=== PATIENT | male | born 1945 | race Caucasian/White ===

== ENCOUNTER → 2016-07-28 | Outpatient (CLI) | payer MEDICARE, OTHER | LOC: GMAM 17:00 | PROVIDERS: ATTEND Family Medicine | DX: E03.9 Hypothyroidism, unspecified (principal); E29.1 Testicular hypofunction ==

== ENCOUNTER → 2016-09-02 | Outpatient (CLI) | payer MEDICARE, OTHER | END | disposition home or self-care (01) | LOC: LAB 11:56 | PROVIDERS: ATTEND Family Medicine | DX: D45 Polycythemia vera (principal) ==

== ENCOUNTER → 2017-01-05 | Outpatient (CLI) | payer MEDICARE, OTHER | END | disposition home or self-care (01) | LOC: GMAM 10:56 | PROVIDERS: ATTEND Family Medicine | DX: E03.9 Hypothyroidism, unspecified (principal); E55.9 Vitamin D deficiency, unspecified; R31.21 Asymptomatic microscopic hematuria ==

== ENCOUNTER → 2017-04-30 | Outpatient (CLI) | payer MEDICARE, OTHER | END | disposition home or self-care (01) | LOC: GMA 12:51 | PROVIDERS: ATTEND Physician Assistant | DX: L03.317 Cellulitis of buttock (principal) ==

== ENCOUNTER → 2017-05-11 | Outpatient (CLI) | payer MEDICARE, OTHER | END | disposition home or self-care (01) | LOC: GMAM 10:18 | PROVIDERS: ATTEND Family Medicine | DX: E03.9 Hypothyroidism, unspecified (principal); E29.1 Testicular hypofunction; E55.9 Vitamin D deficiency, unspecified ==

== ENCOUNTER → 2018-07-13 | Outpatient (CLI) | payer MEDICARE, OTHER | LOC: GMAM 11:26 | PROVIDERS: ATTEND Family Medicine | DX: E03.9 Hypothyroidism, unspecified (principal); E29.1 Testicular hypofunction; E55.9 Vitamin D deficiency, unspecified ==

== ENCOUNTER 2018-09-08 11:46 | Emergency (ER) | payer MEDICARE, OTHER ==
[2018-09-08] MEDS ORDERED: FOLIC ACID 1 MG TAB ONE (12:05)
[2018-09-08] MEDS ORDERED: THIAMINE HCL 100 MG TAB PO ONE (12:05)
[2018-09-08 12:09] VITALS: TEMP 97.4
[2018-09-08 13:06] VITALS: O2SAT 96
--- NOTE | 2018-09-08 13:57 | ED.PDOC ---
History of Present Illness - General Chief Complaint: General Stated Complaint: tingling,numbness in feet and left hand Time Seen by Provider: 09/08/18 11:58 Source: patient Exam Limitations: no limitations - History of Present Illness Initial Comments: the patient is 72-year-old male presenting to emergency room secondary to feeling of worsening of decreased sensation and as well as neuropathic burning pain to the stocking glove distribution over the past 3-5 days. No focal neurological deficits. No trauma. The patient admits being noncompliant with his CPAP at night and he does have significant sleep apnea. He has had some significant peripheral neuropathy in the past and does see a neurologist already. He does have a history of significant alcohol intake. Timing/Duration: 1 week Severity: mild Improving Factors: nothing Worsening Factors: nothing Associated Symptoms: denies symptoms Allergies/Adverse Reactions: Allergies NO KNOWN ALLERGY Allergy (Verified 04/25/15 08:21) Home Medications: Ambulatory Orders Armouk Thyroid 97.5 mg PO DAILY 04/25/15 Aspirin [Baby Aspirin] 81 mg PO QD 04/25/15 Cholecalciferol [Vitamin D-3] 2,000 unit PO DAILY 04/25/15 Losartan Potassium 100 mg PO DAILY 04/25/15 Wagener-3 Fatty Acids [Fish Oil] 1 cap PO DAILY 04/25/15 Tamsulosin [Flomax] 0.4 mg PO BEDTIME 04/25/15 Triamterene & Hydrochlorothiaz [Triamterene/Hydrochloroth 37.5-25 mg] 1 cap PO DAILY 04/25/15 Amlodipine Besylate 5 mg PO DAILY 09/08/18 Ascorbic Acid [Vitamin C] 1,000 mg PO DAILY 09/08/18 Bupropion HCl [Bupropion HCl Xl] 150 mg PO DAILY 09/08/18 Calcium 600 mg PO DAILY 09/08/18 Clonazepam 2 mg PO BEDTIME 09/08/18 Esomeprazole Magnesium [Nexium 24Hr] 20 mg PO DAILY 09/08/18 Gabapentin [Neurontin] 100 mg PO QPM #30 cap 09/08/18 Qvnunmltrxq-Rcfdmdxazlq-Dvhmug [Glucosamine & Chrondroiti] 1 pow PO DAILY 09/08/18 Magnesium [Magnesium 400 mg] 1 tab PO DAILY 09/08/18 Metformin HCl 500 mg PO DAILY 09/08/18 Review of Systems - Review of Systems Constitutional: States: no symptoms reported EENTM: States: no symptoms reported Respiratory: States: no symptoms reported Cardiology: States: no symptoms reported Gastrointestinal/Abdominal: States: no symptoms reported Genitourinary: States: no symptoms reported Musculoskeletal: States: no symptoms reported Skin: States: no symptoms reported Neurological: States: see HPI, anxiety Endocrine: States: no symptoms reported All other Systems: No Change from Baseline Past Medical History (General) - Patient Medical History Hx Stroke: No Hx Congestive Heart Failure: No Hx Hypertension: Yes Hx Diabetes: No Hx Gastroesophageal Reflux: Yes - Vaccination History Hx Influenza Vaccination: Yes Hx Pneumococcal Vaccination: Yes - Social History Hx Tobacco Use: Yes Family Medical History - Family History Father Family History: Unknown Physical Exam - Physical Exam General Appearance: Alert, Anxious, No apparent distress, Other - the patient ambulates without difficulty. No evidence of altered mental status without slurring of speech. He is alert oriented and completely appropriate. Eye Exam: bilateral normal Ears, Nose, Throat: hearing grossly normal, normal ENT inspection, normal pharynx Neck: full range of motion, supple Respiratory: lungs clear, normal breath sounds, no respiratory distress, no accessory muscle use Cardiovascular/Chest: normal peripheral pulses, regular rate, rhythm, no edema Peripheral Pulses: radial,right: 2+, radial,left: 2+, dorsalis pedis,right: 2+, dorsalis pedis,left: 2+ Gastrointestinal/Abdominal: non tender, soft Rectal Exam: deferred Back Exam: no CVA tenderness, no vertebral tenderness Extremity: normal range of motion, non-tender, no pedal edema, no calf tenderness, normal capillary refill 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 Skin Exam: normal color Comments: Vital Signs - 24 hr 09/08/18 09/08/18 12:04 13:05 Temperature 97.4 F L Pulse Rate [ 101 H 85 Left Brachial] Respiratory 20 18 Rate Blood Pressure 178/84 148/84 [Left Arm] O2 Sat by Pulse 98 96 Oximetry Progress - Progress Progress: 09/08/18 13:58 the patient is a 72-year-old male presenting to the emergency room secondary to worsening of his stocking glove peripheral neuropathy symptoms. I see no new focal neurological deficits to indicate anything along the lines of a stroke. I would recommend that the patient restart his CPAP at night if possible as overnight low oxygen levels may be worsening the process. I will write him for Neurontin to take 100 mg at night for now for the next few weeks. He needs to follow back up with his primary care doctor in a couple of weeks to see if this is overall helping his symptoms. He does understand that this will not reverse the sensory loss but only hopefully reduce the painful aspects of the neuropathy. Additionally I want the patient to take a vitamin B complex, 2 tablets daily that he can get at [facility]. He does need to continue his vitamin D supplement. Ambulate carefully as sensory loss does increase fall risk. Additionally, alcohol intake can worsen neuropathic changes. diabetes can also contribute to worsening peripheral neuropathy so this needs to be followed as well. ER warnings were given for any significant worsening. 09/08/18 14:03 - Results/Orders Results/Orders: Laboratory Tests 09/08/18 09/08/18 09/08/18 12:03 12:03 12:03 WBC 6.1 RBC 5.03 Hgb 17.2 Hct 50.4 MCV 100.2 H MCH 34.3 H MCHC 34.2 RDW 13.8 Plt Count 244 MPV 7.8 Absolute Neuts (auto) 3.70 Absolute Lymphs (auto) 1.40 Absolute Monos (auto) 0.80 Absolute Eos (auto) 0.10 Absolute Basos (auto) 0.10 Neutrophils % 60.2 Lymphocytes % 23.3 Monocytes % 13.6 H Eosinophils % 1.8 Basophils % 1.1 Sodium 136 Potassium 4.0 Chloride 99 L Carbon Dioxide 23 Anion Gap 18.0 BUN 8 Creatinine 0.43 L BUN/Creatinine Ratio 18.6 Random Glucose 113 H Serum Osmolality 271.1 L Lactic Acid 2.2 Calcium 9.9 Magnesium 1.9 Total Bilirubin 1.5 H AST 62 H ALT 94 H Alkaline Phosphatase 75 Creatine Kinase 154 CK-MB (CK-2) 5.5 H* CK-MB (CK-2) % 3.57 H Troponin I < 0.02 B-Natriuretic Peptide 9.7 Serum Total Protein 8.0 Albumin 4.7 Globulin 3.3 Albumin/Globulin Ratio 1.4 TSH 0.88 Urine Color Urine Appearance Urine pH Ur Specific [place] Urine Protein Urine Glucose (UA) Urine Ketones Urine Blood Urine Nitrite Urine Bilirubin Urine Urobilinogen Ur Leukocyte Esterase Urine RBC Urine WBC Ur Epithelial Cells Urine Bacteria 09/08/18 12:15 WBC RBC Hgb Hct MCV MCH MCHC RDW Plt Count MPV Absolute Neuts (auto) Absolute Lymphs (auto) Absolute Monos (auto) Absolute Eos (auto) Absolute Basos (auto) Neutrophils % Lymphocytes % Monocytes % Eosinophils % Basophils % Sodium Potassium Chloride Carbon Dioxide Anion Gap BUN Creatinine BUN/Creatinine Ratio Random Glucose Serum Osmolality Lactic Acid Calcium Magnesium Total Bilirubin AST ALT Alkaline Phosphatase Creatine Kinase CK-MB (CK-2) CK-MB (CK-2) % Troponin I B-Natriuretic Peptide Serum Total Protein Albumin Globulin Albumin/Globulin Ratio TSH Urine Color Yellow Urine Appearance Clear Urine pH 7.0 Ur Specific [place] 1.015 Urine Protein Negative Urine Glucose (UA) Negative Urine Ketones Negative Urine Blood Negative Urine Nitrite Negative Urine Bilirubin Negative Urine Urobilinogen 0.2 Ur Leukocyte Esterase Negative Urine RBC 0 Urine WBC 0 Ur Epithelial Cells 0 Urine Bacteria 0 Departure - Departure Clinical Impression: Peripheral neuropathy Qualifiers: Peripheral neuropathy type: polyneuropathy, unspecified Qualified Code(s): G62.9 - Polyneuropathy, unspecified Disposition: Discharge to Home or Self Care Condition: Fair Departure Forms: ED Discharge - Pt. Copy, Patient Portal Self Enrollment Instructions: Peripheral Neuropathy (DC) Diet: regular diet Activity: increase activity as tolerated Referrals: Mark Guido MD [Primary Care Provider] - 1-2 Weeks Prescriptions: Gabapentin [Neurontin] 100 mg PO QPM #30 cap Home Medications: Ambulatory Orders Armouk Thyroid 97.5 mg PO DAILY 04/25/15 Aspirin [Baby Aspirin] 81 mg PO QD 04/25/15 Cholecalciferol [Vitamin D-3] 2,000 unit PO DAILY 04/25/15 Losartan Potassium 100 mg PO DAILY 04/25/15 Wagener-3 Fatty Acids [Fish Oil] 1 cap PO DAILY 04/25/15 Tamsulosin [Flomax] 0.4 mg PO BEDTIME 04/25/15 Triamterene & Hydrochlorothiaz [Triamterene/Hydrochloroth 37.5-25 mg] 1 cap PO DAILY 04/25/15 Amlodipine Besylate 5 mg PO DAILY 09/08/18 Ascorbic Acid [Vitamin C] 1,000 mg PO DAILY 09/08/18 Bupropion HCl [Bupropion HCl Xl] 150 mg PO DAILY 09/08/18 Calcium 600 mg PO DAILY 09/08/18 Clonazepam 2 mg PO BEDTIME 09/08/18 Esomeprazole Magnesium [Nexium 24Hr] 20 mg PO DAILY 09/08/18 Gabapentin [Neurontin] 100 mg PO QPM #30 cap 09/08/18 Qbznypufmtd-Bmngnfxgqxs-Uldimm [Glucosamine & Chrondroiti] 1 pow PO DAILY 09/08/18 Magnesium [Magnesium 400 mg] 1 tab PO DAILY 09/08/18 Metformin HCl 500 mg PO DAILY 09/08/18 Additional Instructions: the patient is a 72-year-old male presenting to the emergency room secondary to worsening of his stocking glove peripheral neuropathy symptoms. I see no new focal neurological deficits to indicate anything along the lines of a stroke. I would recommend that the patient restart his CPAP at night if possible as overnight low oxygen levels may be worsening the process. I will write him for Neurontin to take 100 mg at night for now for the next few weeks. He needs to follow back up with his primary care doctor in a couple of weeks to see if this is overall helping his symptoms. He does understand that this will not reverse the sensory loss but only hopefully reduce the painful aspects of the neuropathy. Additionally I want the patient to take a vitamin B complex, 2 tablets daily that he can get at [facility]. He does need to continue his vitamin D supplement. Ambulate carefully as sensory loss does increase fall risk. Additionally, alcohol intake can worsen neuropathic changes. diabetes can also contribute to worsening peripheral neuropathy so this needs to be followed as well. ER warnings were given for any significant worsening.
[2018-09-08 14:10] VITALS: BP 157/82
[2018-09-09] MEDS ORDERED: THIAMINE HCL 100 MG TAB PO ONE (12:00)
[2018-09-09] MEDS ORDERED: FOLIC ACID 1 MG TAB PO ONE (12:00)
== END 2018-09-08 14:10 | disposition home or self-care (01) ==
LOC: ER 11:46
DX: G62.9 Polyneuropathy, unspecified (principal); G47.30 Sleep apnea, unspecified; I10 Essential (primary) hypertension; K21.9 Gastro-esophageal reflux disease without esophagitis; Z91.19 Patient's noncompliance with other medical treatment and regimen; Z79.899 Other long term (current) drug therapy; Z79.82 Long term (current) use of aspirin; Z87.891 Personal history of nicotine dependence

== ENCOUNTER → 2018-09-15 | Outpatient (CLI) | payer MEDICARE, OTHER ==
--- NOTE | 2018-09-15 20:33 | MRI ---
EXAM DESCRIPTION: Brain w/wo Contrast: Magnetic Resonance Imaging. CLINICAL HISTORY: 72 years Male HEADACHE COMPARISON: None. TECHNIQUE: Multiplanar, high-field MRI, multiple conventional sequences, without and with gadolinium IV contrast. No adverse reactions. Multiple axial diffusion sequences. FINDINGS: Bilateral multiple foci of hyperintense FLAIR and T2-weighted signal in the busby radiata periventricular white matter and bilateral centrum semiovale. Scattered foci bilaterally in the subcortical white matter.. No hemorrhage, edema, abnormal contrast enhancement, or diffusion restriction. Bilateral lesions also seen in the basal ganglia, more left than right. 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 No abnormal enhancement. Normal signal in the brainstem and cerebellar hemispheres, except for old focal lesion, possibly old infarct, in the right cerebellar hemisphere.. No hemorrhage, no cerebral edema, no mass-effect. Normal contrast enhancement. Concordance of the diffusion and non-diffusion sequences with no evidence of acute or subacute infarction. Cortical sulci, ventricles, and other CSF spaces, and the subdural spaces are normally configured.. No effacement or displacement. No midline shift. No extra-axial hemorrhage. Normal contrast enhancement. Normal flow signal void in the major vessels of the [place], and the venous sinuses. IACs are symmetric bilaterally. Fluid like signal in the bilateral mastoid air cells. No mass effect in the bilateral Cerebellopontine angles. Normal contrast enhancement. Pituitary gland occupies most of the sella. Normal contrast enhancement. Base of the cerebellar tonsils is at the level of the foramen magnum. Mucoperiosteal thickening with minimal contrast enhancement in the bilateral ethmoid air cells. Inferior anterior mucous retention cyst or polyp in the right antrum with no significant enhancement. No other abnormalities in the paranasal sinuses.. The bony calvarium is intact. IMPRESSION: 1. Abnormal signal in the bilateral basal ganglia, busby radiata and centrum semiovale white matter, in the subcortical white matter most likely related to cerebral microvascular disease and aging. No intra-axial extra-axial hemorrhage or abnormal fluid collection. No abnormal contrast enhancement or mass effect. 2. No significant effusion restriction indicating acute or subacute infarction or significant ischemia. Old infarct in the right basal ganglia. Possible old infarct in the right cerebellar hemisphere. 3. Minimal chronic paranasal sinusitis. Chronic mastoiditis bilaterally. Electronically signed by: Santi Vazquez MD 09/15/2018 8:29 PM CDT
== END ==
LOC: MRI 10:00
PROVIDERS: ATTEND Family Medicine
DX: G44.89 Other headache syndrome (principal); J32.9 Chronic sinusitis, unspecified; H70.93 Unspecified mastoiditis, bilateral

== ENCOUNTER → 2018-09-26 | Outpatient (CLI) | payer MEDICARE, OTHER ==
--- NOTE | 2018-09-26 11:17 | US ---
EXAM DESCRIPTION: Sonogram of the liver CLINICAL HISTORY: 72 years Male, ELEVATED LFT COMPARISON: None. FINDINGS: Arteriosclerotic changes in the aorta with infrarenal abdominal aortic aneurysm 4.2 x 4.3 cm. Vascular surgical consultation is recommended with annual imaging follow-up. Normal appearance of the inferior vena cava. Liver is hyperechoic consistent with mild diffuse hepatic steatosis. Liver length of 16.9 cm is within normal limits. Normal appearance of hepatic veins and inferior vena cava. Normal appearance of the portal vein. Right kidney measures 11.8 cm length with normal cortical thickness and echogenicity and no hydronephrosis. A stone is seen in the gallbladder 2.2 cm in diameter. Gallbladder wall thickness is 1.5 mm which is within normal limits. Sonographic Elizalde sign is reported as negative. Common duct is prominent measuring 4.9 mm. IMPRESSION: Gallstone in the gallbladder without other changes to suggest acute cholecystitis. Hyperechoic liver consistent with diffuse hepatic steatosis. Infrarenal abdominal aortic aneurysm 4.3 cm. See above recommendations for follow-up. Electronically signed by: Arslan Montgomery MD 09/26/2018 11:15 AM CDT
--- NOTE | 2018-09-26 16:11 | US ---
EXAM DESCRIPTION: Carotid Duplex CLINICAL HISTORY: vascular dz I73.0 COMPARISON: None Available. TECHNIQUE: Carotid Doppler ultrasound FINDINGS: Right Submitted images show prominent calcified plaque in the upper left CCA and at the left carotid bifurcation. The longitudinal image measures ICA diameter stenosis of 49% due to calcified plaque. The following flow velocities were obtained: Common carotid artery peak systolic flow velocity measures 101 centimeters per second. Internal carotid artery peak systolic flow velocity measures 47-63 centimeters per second. External carotid artery peak systolic flow velocity measures 99 centimeters per second. Flow in the right vertebral artery is antegrade. The right internal carotid to common carotid peak systolic flow velocity ratio equals 0.6 which is normal. Left Submitted images show extensive calcified plaque of the left carotid bifurcation. The following flow velocities were obtained: Common carotid artery peak systolic flow velocity measures 78 centimeters per second. Internal carotid artery peak systolic flow velocity measures 41-58 centimeters per second. External carotid artery peak systolic flow velocity measures 76 centimeters per second. Flow in the left vertebral artery is antegrade. The left internal carotid to common carotid peak systolic flow velocity ratio of 0.7 is normal. IMPRESSION: Arteriosclerotic plaque at the carotid bifurcations bilaterally. No hemodynamically significant stenosis. Electronically signed by: Arslan Montgomery MD 09/26/2018 4:09 PM CDT
== END ==
LOC: US 10:30
PROVIDERS: ATTEND Family Medicine
DX: R94.5 Abnormal results of liver function studies (principal); K76.9 Liver disease, unspecified; I73.00 Raynaud's syndrome without gangrene; I71.4 Abdominal aortic aneurysm, without rupture; I65.23 Occlusion and stenosis of bilateral carotid arteries; K80.20 Calculus of gallbladder without cholecystitis without obstruction; M47.816 Spondylosis without myelopathy or radiculopathy, lumbar region

== ENCOUNTER → 2018-09-30 | Outpatient (CLI) | payer MEDICARE, OTHER | LOC: GMAM 14:56 | PROVIDERS: ATTEND Family Medicine | DX: R94.5 Abnormal results of liver function studies (principal) ==

== ENCOUNTER → 2018-10-05 | Outpatient (CLI) | payer MEDICARE, OTHER | LOC: GMAM 11:28 | PROVIDERS: ATTEND Family Medicine | DX: E83.51 Hypocalcemia (principal) ==

== ENCOUNTER → 2018-11-29 | Outpatient (CLI) | payer MEDICARE, OTHER ==
--- NOTE | 2018-11-29 15:09 | MRI ---
EXAM DESCRIPTION: Lumbar Spine w/o Contrast : Magnetic Resonance Imaging. CLINICAL HISTORY: LUMBAR RADICULOPATHY COMPARISON: MRI scan of the lumbar spine without contrast 03/11/2013. TECHNIQUE: Multiplanar, multiple standard sequences, non contrast MRI, lumbar spine. FINDINGS: L5-S1: Disc space is identified on T2 axial series 501, image 8. S1 sacral segment is transitional and partially lumbarized. Rudimentary S1-S2 disc. L5-S1 disc desiccation and moderate disc space loss more on the right with moderate endplate reactive changes. Disc spur complex encroaching on the right foramen with stenosis and compromise of the exiting right L5 nerve. This has increased since the prior study. Posterior disc bulge 6 mm with minimal inferior migration effacing the bilateral subarticular recesses more left than right and possible compromise descending bilateral S1 nerves. Disc bulge versus protrusion into the left foramen with stenosis and compromise left L5 nerve. No significant change since the prior study. Mild bilateral facet arthrosis and thickening of the ligaments. AP canal diameter 10 mm. L4-L5: Disc desiccation diffusely with endplate reactive changes moderate to advanced in the midline into the right of midline. Schmorl's nodes. Disc osteophyte complex impressing on the right foramen with minimal stenosis. Posterior disc osteophyte broad-based encroaching on the canal. Partial left L5 laminectomy has been performed since the prior study. Mild left facet hypertrophic arthrosis and ligament thickening. AP canal diameter 12 mm. Mild to moderate left foraminal narrowing. L3-L4: Disc desiccation and moderate disc space loss on the right. Disc space almost collapsed on the left with advanced spondylosis reactive changes and endplate Schmorl's nodes. Grade 1 anterolisthesis 4 mm. Progressed since the prior study. Disc spur complex encroaching on the left foramen with stenosis and compromise left L3 nerve. Progressed since the prior study. Minimal narrowing of the left subarticular recess. Bilateral hypertrophic facet arthrosis and ligament thickening. AP canal diameter 9 mm. This is progressed since the prior study. L2-L3: Disc desiccation and minimal disc space loss. Posterior broad-based bulge with minimal disc osteophyte bulge into the left foramen and moderate narrowing. This is progressed since the prior study. Hypertrophic facet arthrosis and posterior ligament thickening with AP canal diameter 9 mm. Narrowing of the bilateral subarticular recesses. Mild narrowing of the left foramen. L1-L2: Disc desiccation and disc space maintained. Schmorl's node inferior L1. No significant disc bulge. Bilateral mild upper trophic facet arthrosis and ligament thickening. Mild canal narrowing. Conus terminates at this level. No change since the prior study. T12-L1: Disc desiccation and mild to moderate disc space loss. Endplate reactive changes and Schmorl's node inferior T12. Minimal posterior broad-based bulge. This is progressed since the prior study. Bilateral hypertrophic facet arthrosis and ligament thickening. Mild canal narrowing left foraminal narrowing. Stable since the prior study. No significant scoliosis. Paravertebral soft tissues showing muscle atrophy.. Normal marrow signal in the remaining vertebral bodies and the posterior elements. Vertebral bodies are not compressed at any level. IMPRESSION: 1. Multilevel discs degeneration, spondylosis, hypertrophic facet arthrosis and flavum ligament hypertrophy. Progressed since the prior study. L1 sacral segment is transitional and partially lumbarized with a S1-S2 rudimentary disc. 2. L5-S1 spondylosis with right side disc spur complex encroaching on the right L5 nerve. Posterior disc bulge migrating below the disc space and encroaching on the bilateral subarticular recesses with compromise of the bilateral S1 nerves. Progressed since the prior study. Disc bulge into the left foramen encroaching on the nerve stable since the prior study. 3. Right L4-L5 spondylosis and disc spur complex encroaching on the foramen with minimal stenosis and nerve encroachment no change since the prior study. L5 left partial laminectomy new since the prior study. 4. Grade 1 anterolisthesis at L3-4 and advanced spondylosis on the left has progressed since the prior study. Also new left side disc spur complex encroaching on the foramen and the left L3 nerve. Mild central canal stenosis. 5. Posterior broad-based bulge of the L2-L3 disc and disc osteophyte bulge into the left foramen has progressed since the prior study. Electronically signed by: Santi Vazquez MD 11/29/2018 3:07 PM CDT
== END ==
LOC: MRI 10:00
PROVIDERS: ATTEND Family Medicine
DX: M51.16 Intervertebral disc disorders with radiculopathy, lumbar region (principal); M47.26 Other spondylosis with radiculopathy, lumbar region; M43.16 Spondylolisthesis, lumbar region; M48.062 Spinal stenosis, lumbar region with neurogenic claudication

== ENCOUNTER → 2019-02-03 | Outpatient (CLI) | payer MEDICARE, OTHER ==
--- NOTE | 2019-02-03 16:56 | CT ---
EXAM DESCRIPTION: Lumbar Spine CLINICAL HISTORY: 73 years, Male, Spondylosis without myelopathy or radiculopathy COMPARISON: MRI of the lumbar spine November 29, 2018 TECHNIQUE: Lumbar CT with thin-section axial imaging with reconstructed MPR images reviewed as well. FINDINGS: Sagittal reformatted images show congenitally small lumbar spinal canal. Mild degenerative anterolisthesis of L3 on L4 measures 5 mm. No spondylolysis. No compression fracture or other fracture. There is slight wedging anteriorly at T12 which is chronic in appearance. Multiple Schmorl's nodes are seen. Severe disc degeneration is seen at T11-12, T12-L1, L3-4, L4-5 and L5-S1 with vacuum disc phenomenon. Posterior annular bulges are prominent at these levels. Coronal reformatted images show infrarenal abdominal aortic aneurysm measuring 4.2 cm in diameter. Imaging follow up every 12 months is recommended as well as vascular surgical consultation (Reference: J Am Arnold Radiol 2013;10:789-794). Mild degenerative leftward curvature of the mid to lower lumbar spine is seen with multilevel prominent lateral marginal osteophytes. Upper sacrum appears intact. Degenerative narrowing at the SI joints. Axial images were obtained to evaluate disc levels. T11-T12: Moderate diffuse posterior bulge without spinal stenosis. There is severe left and moderately severe right neural foraminal narrowing related to bulging disc material and marginal osteophyte formation. No significant facet hypertrophy. T12-L1: Diffuse posterior annular bulge of moderate severity without high-grade spinal stenosis. Neural foraminal narrowing is moderate on the right and mild on the left. Marked right-sided facet hypertrophic spurring. There is moderate narrowing of the left subarticular recess. L1-L2: Moderate diffuse posterior disc bulge is seen narrowing the spinal canal to 1.2 cm in AP dimension. There is mild left and moderate right neural foraminal narrowing related to bulging disc material. No significant facet spurring. L2-3: Moderately severe diffuse posterior bulge is seen. Moderate facet hypertrophy with marked ligamentum flavum thickening. Spinal canal is narrowed to 1 x 0.6 cm consistent with moderately severe spinal stenosis. There is moderate bilateral neural foraminal narrowing left more than right with marked left-sided facet spurring. Subarticular recesses are severely narrowed with moderate upper lateral recess compromise. L3-4: Uncovering of the posterior annulus by grade 1 anterolisthesis. Moderately severe diffuse annular bulge is seen narrowing the AP diameter spinal canal to 1.2 cm. Marked facet spurring right worse than left with severe subarticular recess and upper lateral recess compromise. Sagittal images show moderately severe bilateral neural foraminal narrowing. L4-L5: Moderately severe diffuse posterior annular bulge narrows the AP diameter of spinal canal to 1 cm. Posterior left laminectomy defect. Mild facet hypertrophic spurring on the right. There is severe subarticular recess and lateral recess compromise by bulging disc material. Moderate bilateral neural foraminal narrowing. L5-S1: Moderately severe diffuse posterior annular bulge with high grade spinal stenosis narrowing the AP diameter spinal canal to 6 mm. Moderate facet hypertrophy contributes to subarticular recess compromise. Sagittal images show Severe left and moderately severe right neural foraminal narrowing. Compared to previous MRI, findings are very similar. No major change is evident. IMPRESSION: Multilevel multifactorial lumbar spinal stenosis most severe at L2-3, L4-5 and L5-S1. Infrarenal abdominal aortic aneurysm 4.2 cm in diameter. Follow-up as per recommendations above. This exam was performed according to our departmental dose-optimization program, which includes automated exposure control, adjustment of the mA and/or kV according to patient size and/or use of iterative reconstruction technique. Electronically signed by: Arslan Montgomery MD 02/03/2019 4:54 PM CDT
== END ==
LOC: CT 15:30
PROVIDERS: ATTEND Neurological Surgery
DX: M47.816 Spondylosis without myelopathy or radiculopathy, lumbar region (principal); M48.04 Spinal stenosis, thoracic region; M48.061 Spinal stenosis, lumbar region without neurogenic claudication; M47.12 Other spondylosis with myelopathy, cervical region; I71.4 Abdominal aortic aneurysm, without rupture

== ENCOUNTER → 2019-02-06 | Outpatient (CLI) | payer MEDICARE, OTHER ==
--- NOTE | 2019-02-06 17:32 | MRI ---
PROVIDED CLINICAL HISTORY/REASON FOR EXAM: SPONDYLOSIS TECHNIQUE: Multiplanar, multisequence MRI examination performed of the cervical spine without intravenous contrast material. COMPARISON: None available. FINDINGS: Alignment: No acute subluxation. Straightening of the normal cervical lordosis. Fracture: None present. Prevertebral / Paraspinal Soft Tissues: Indeterminate nodule in the region of the left thyroid lobe measuring 2.2 cm. Cervicomedullary Junction: Unremarkable. Cervical Spinal Cord: Normal. C1/2: No significant abnormality. C2/3: No significant abnormality. C3/4: Disc desiccation with loss of disc space height. Asymmetric left disc bulge osteophyte complex. There is indentation of the left ventrolateral cord. No cord signal abnormality. Moderate central canal stenosis. Severe left neural foraminal narrowing. Moderate right neural foraminal narrowing. Bilateral facet and uncinate process hypertrophy more pronounced on the left. C4/5: Disc desiccation with loss of disc space height. Severe left and moderate right neural foraminal narrowing. Bilateral facet and uncinate process hypertrophy. Diffuse symmetric disc bulge osteophyte complex. No significant central canal stenosis. C5/6: Disc desiccation with loss of disc space height. Asymmetric right disc bulge osteophyte complex. Moderate left and severe right neural foraminal narrowing. Mild central canal stenosis. Bilateral facet and uncinate process hypertrophy, more pronounced on the right. C6/7: Disc space narrowing with endplate degenerative change. Disc desiccation. Asymmetric right disc bulge osteophyte complex. Severe right and moderate left neural foraminal narrowing. Bilateral facet and uncinate process hypertrophy. Moderate central canal stenosis. Indentation of the ventral cord. No underlying cord signal abnormality. C7/T1: Disc desiccation with loss of disc space height and endplate degenerative change. Asymmetric right disc bulge osteophyte complex. Mild left and moderate right neural foraminal narrowing. No significant central canal stenosis. IMPRESSION: 1. Marked multilevel cervical spondylosis, most pronounced at C3/C4, C5/C6 and C6/C7. 2. Indeterminate 2.2 cm nodule in the region of the left thyroid lobe. Recommend dedicated thyroid ultrasound for further evaluation. Electronically signed by: Steven Brizuela MD 02/06/2019 5:30 PM CDT
== END ==
LOC: MRI 10:00
PROVIDERS: ATTEND Neurological Surgery
DX: M47.12 Other spondylosis with myelopathy, cervical region (principal); M47.815 Spondylosis without myelopathy or radiculopathy, thoracolumbar region; M48.04 Spinal stenosis, thoracic region; M96.1 Postlaminectomy syndrome, not elsewhere classified; E04.1 Nontoxic single thyroid nodule

== ENCOUNTER → 2019-02-07 | Outpatient (CLI) | payer MEDICARE, OTHER ==
--- NOTE | 2019-02-08 15:59 | MRI ---
EXAM DESCRIPTION: Thoracic Spine w/o Contrast: Magnetic Resonance Imaging. CLINICAL HISTORY: SPINAL STENOSIS COMPARISON: MR cervical spine 02/06/2019. CT scan lumbar spine 02/03/2019. TECHNIQUE: Multiplanar, multiple standard sequences, non contrast MRI, thoracic spine. FINDINGS: Desiccation of the T6-T7 disc with anterior disc space loss anterior bulging and endplate ridging and moderate endplate changes. Posterior broad-based disc bulge and midline 4 mm protrusion impressing on the ventral cord. Moderate canal narrowing. Minimal foraminal narrowing. Facet joints negative. T8-T9 disc desiccation with mild endplate reactive changes and erosions. Posterior midline 3 mm bulge not touching the cord with no canal stenosis, minimal foraminal narrowing. Facet joints negative. Minimal anterolisthesis T2-T3 disc desiccation. No canal stenosis but bilateral facet arthrosis with moderate narrowing of the foramina. Also bilateral moderate foraminal narrowing at T1-T2 due to hypertrophic facet arthrosis. T9-T10 disc is desiccated with minimal disc space loss. Posterior bulge in the midline into the left of midline 4 mm not touching the cord. No canal stenosis. Bilateral foramina are patent with facets unremarkable. T11-T12 disc desiccation anterior disc bulging and endplate ridging. Moderate disc space loss. Posterior broad-based disc osteophyte complex almost touching the cord. Posterior facet hypertrophic arthrosis and thickening of ligaments. Bilateral disc osteophyte complex encroaching on the foramina with moderate narrowing on the right and left foraminal stenosis. T12-L1 disc desiccation anterior bulging and endplate ridging. Schmorl's nodes inferior and superior endplate. Posterior broad-based disc bulge almost touching the cord. Bilateral hypertrophic facet arthrosis and thickening of the ligaments. Moderate canal and foraminal narrowing more on the left. Most discs with desiccated signal. Disc spaces are preserved. Canal and foramina are patent. No scoliosis. Facet joints are unremarkable. Conus terminates at L1-L2 as seen on prior lumbar MRI.. Cord with normal signal, no compression. Paravertebral soft tissues are unremarkable. Normal marrow signal in the remaining vertebral bodies and the posterior elements. Vertebral bodies are not compressed at any level. IMPRESSION: 1. Multiple levels of degenerated disc at multiple levels of spondylosis. Multiple discs with no bulging. 2. Midline C6-7 disc protrusion impressing on the cord. Moderate canal narrowing. No foraminal stenosis. 3. Diffuse spondylosis T11-T12 with disc space loss. Moderate canal narrowing. Bilateral endplate spondylosis with moderate right foraminal narrowing and left foraminal stenosis. Correlate for left T11 radiculopathy. Electronically signed by: Santi Vazquez MD 02/08/2019 3:57 PM CDT
== END ==
LOC: MRI 11:00
PROVIDERS: ATTEND Neurological Surgery
DX: M47.12 Other spondylosis with myelopathy, cervical region (principal); M47.816 Spondylosis without myelopathy or radiculopathy, lumbar region; M47.814 Spondylosis without myelopathy or radiculopathy, thoracic region; M96.1 Postlaminectomy syndrome, not elsewhere classified; M48.04 Spinal stenosis, thoracic region; M50.223 Other cervical disc displacement at C6-C7 level

== ENCOUNTER → 2019-03-03 | Outpatient (CLI) | payer MEDICARE, OTHER ==
--- NOTE | 2019-03-03 12:02 | US ---
EXAM DESCRIPTION: Venous,Upper Extremity LT: ULTRASOUND. CLINICAL HISTORY: LOCALIZED SWELLING, MASS AND LUMP UNSPEC. UPPER LIMB COMPARISON: Multiple recent CT and MRI scans. TECHNIQUE: Two -dimensional and doppler sonographic evaluation of the deep venous system of the left upper extremity. FINDINGS: Doppler evaluation shows normal color flow and normal phasicity and augmentation of the left subclavian, jugular, axillary, basilic, cephalic, brachial, radial vein and ulnar vein. The left upper extremity deep veins showed normal occlusion with transducer pressure. Two-dimensional survey showed no echogenic thrombus within these veins. Fluid collection abutting the posterior left elbow measuring 2.3 x 3.4 x 1.1 cm. IMPRESSION: Duplex ultrasound evaluation of the left upper extremity deep venous system showing no thrombosis . Joint effusion most likely 3.4 cm long axis abutting the left posterior elbow. Electronically signed by: Santi Vazquez MD 03/03/2019 12:01 PM CDT
== END ==
LOC: US 09:55
PROVIDERS: ATTEND Nurse Practitioner Family
DX: R22.32 Localized swelling, mass and lump, left upper limb (principal)

== ENCOUNTER → 2019-03-24 | Outpatient (CLI) | payer MEDICARE, OTHER ==
--- NOTE | 2019-03-26 19:41 | CT ---
EXAM DESCRIPTION: Chest w/o Contrast : Computed Tomography. CLINICAL HISTORY: 73 years Male NICOTINE DEPENDENCE COMPARISON: Chest x-ray December 2017. TECHNIQUE: Spiral-axial scans at 5.0 x 5.0 mm intervals through the lungs and thorax without IV contrast. 2.5 x 5.0 mm lung algorithm axial reconstructions. Coronal and sagittal 2.0 Mm reconstructions. Total Exam DLP: 752.48 mGy-cm. This exam was performed according to our departmental dose-optimization program which includes automated exposure control, adjustment of the mA and/or kV according to patient size and/or use of iterative reconstruction technique; to reduce radiation dose to as low as reasonably achievable (ALARA). Nodule measurements under 10 mm are given as mean value of 3 axes diameters. FINDINGS: Lungs and large airways: Bilateral upper lobe blebs and bulla with less frequency in the mid and lower lung jaimes. Predominantly centrilobular distribution. In the posterior inferior medial right upper lobe is a mostly circumscribed soft tissue mass with multiple calcifications which is abutting the superior right hilum and the right bronchus and right upper lobe segmental branches as well as the right mediastinal pleura. Largest transverse dimensions are 3.3 x 3.1 cm on axial image 4/50. The main mass measures approximately 3 cm craniocaudal with a posterior superior extension which measures 1.4 cm on coronal image 602/116 and also measures 1.6 x 1.1 cm transverse on axial image 4/40. Also small calcifications in the superior extension. Mass effect on the medial aspect of the horizontal fissure. The mass is completely obstructing a right upper lobe subsegmental bronchial branch, possibly medial subsegment of the anterior segment (coronal image 602/109). No other endobronchial masses. Pleural parenchymal scarring in the inferior lingula and left lower lobe. No abnormal nodules. No other masses. No focal infiltrates. Pleural spaces: No calcification no pleural effusion and no pneumothorax. Mediastinum and [place]: Evaluation limited due to lack of IV contrast the previously described mass is abutting the right mediastinal pleura but no definite invasion. No enlarged or reactive mediastinal and hilar nodes or calcifications. Great vessels and Heart: Evaluation limited due to lack of IV contrast. Atherosclerotic calcifications in the brachiocephalic vessels, aortic arch, descending thoracic aorta and coronary arteries. Soft tissues of neck base, axillae, and chest wall: Evaluation limited due to lack of IV contrast. Normal size axillary nodes. Heterogeneous hypodense nodule in the left lobe of the thyroid gland 1.8 x 1.4 cm.. Upper abdomen: Included peritoneal cavity with no free air or fluid. Gallbladder partially visualized. Partial visualization of the spleen kidneys and adrenal glands pancreas and liver. Ill-defined low-density region in the lateral right lobe of the liver measuring approximately 2.6 x 2.3 cm (axial image 2/56) anterior to the mid coronal plane on coronal image 602/86.. Osseous structures: Spondylosis thoracic spine at multiple levels. Arthrosis first costosternal joints and the bilateral sternoclavicular joints also bilateral glenohumeral joints. IMPRESSION: 1. 3.3 cm almost completely circumscribed soft tissue mass with numerous calcifications in the medial base of the right upper lobe abutting the superior right hilum and the right mediastinal pleura but no definite invasion. Small superior extension of the mass partially calcified. No hilar or mediastinal calcifications or other calcifications in the thorax. Differential includes hamartoma, degenerating primary lung malignancy, calcified pneumoconiosis, or calcified metastasis. Ill-defined low-density lesion in the superior lateral right lobe of the liver but no definite calcifications. [facility] Best Practice recommendations: Fleischner Society 2017 guidelines for single pulmonary nodule greater than 8mm diameter. Please see below*. * 2017 Fleischner Society Recommendations for Single Solid Lung Nodule Follow-Up based on size (average of long- and short-axis diameters) >8 mm Low-Risk Patient: Consider CT, PET/CT or tissue sampling at 3 months >8 mm High-Risk Patient: Same as for low-risk patient Also consider CT scan of the abdomen and pelvis with IV contrast. 2. 1.8 x 1.4 cm hypodense nodule in the left lobe of the thyroid gland. [facility] Best Practice recommendations: Recommend thyroid US. Reference: J Am Arnold Radiol. 2015 Jul;12(2): 143-50 Electronically signed by: Santi Vazquez MD 03/26/2019 7:39 PM CDT
== END ==
LOC: CT 11:00
PROVIDERS: ATTEND Internal Medicine Critical Care Medicine
DX: F17.218 Nicotine dependence, cigarettes, with other nicotine-induced disorders (principal); R91.8 Other nonspecific abnormal finding of lung field; K76.9 Liver disease, unspecified

== ENCOUNTER → 2019-10-04 | Outpatient (CLI) | payer MEDICARE, OTHER ==
--- NOTE | 2019-10-04 16:34 | MRI ---
EXAM DESCRIPTION: Cervical Spine: MRI. CLINICAL HISTORY: 73 years Male SPONDYLOSIS WITH MYELOPATHY CERVICAL REGION COMPARISON: MRI scan cervical spine without contrast January 2019. TECHNIQUE: Multiplanar, high-field MRI, multiple sequences, non-contrast Cervical spine. FINDINGS: C3-C4: Disc desiccation posterior moderate disc space loss mostly to the left of midline. Left uncinate spur. Trace anterolisthesis. Left posterior disc osteophyte bulge impressing on the left ventral cord and the left C4 nerve with mild to moderate left paracentral canal stenosis and left neural foraminal stenosis stable since the prior study. Minimal bilateral facet arthrosis and hypertrophy more on the left. C4-C5: Disc desiccation with disc space maintained. Posterior disc space narrowing also to the left of midline. Left uncinate spur. Small uncinate spur on the right. Moderate left neural foraminal stenosis and moderate right neural foraminal narrowing. AP canal diameter 9 mm. Moderate left facet degeneration hypertrophy. Mild arthrosis of the right facet. No change from the prior study. C5-C6: Disc desiccation and diffuse disc space loss laterally. Anterior disc bulging and spurs. Posterior disc osteophyte bulge abutting the cord with bilateral posterior ligament hypertrophy resulting in borderline central canal stenosis. Bilateral uncinate spurs more on the right than the left. Facets unremarkable. Posterior ligaments are thickened. Bilateral uncinate spurs larger on the right. Mild left neural foraminal stenosis and moderate right neural foraminal stenosis. Stable since the prior study. C6-C7: Diffuse spondylosis anterior disc bulging and spurs. Posterior broad-based disc bulge. Posterior bilateral ligament thickening. Mild central canal stenosis. Bilateral uncinate spurs. Bilateral mild neural foraminal stenosis. Facet joints are negative. No change from the prior study. C7-T1: Moderate right side endplate reactive changes. More advanced endplate changes posteriorly into the right of midline. Heart size and density spur. Disc spur complex and uncinate spur encroaching on the right neural foramen which is stenotic with compromise of the right C8 nerve. Mild narrowing of the left neural foramen. No interval change. T1-T2: Disc desiccation and trace anterolisthesis. Right uncinate spur and endplate spondylosis with disc spur complex encroaching on the right neural foramen and the right T1 nerve. Mild canal narrowing. Mild right facet arthrosis. Mild narrowing left foramen. Normal signal in the C2-C3 disc with no bulging. Disc spaces preserved. Canal and neural foramina are patent. Facet joints negative. Spinal alignment minimal dextroscoliosis.. No cord compression or cord edema. Atlantoaxial joint mild arthrosis. Base of the cerebellar tonsils is at the level of the foramen magnum. Paravertebral soft tissues unremarkable.. Vertebral bodies are not compressed at any level. Normal marrow signal in the remaining vertebral bodies and the posterior elements. IMPRESSION: 1. Multilevel disc desiccation, endplate spondylosis, hypertrophic facet arthrosis, hypertrophic posterior ligament thickening, and disc bulging. Multiple levels of the unilateral or bilateral neural foraminal stenosis. Please see above details. 2. Spondylosis on the right at T1-T2 resulting in right neural foraminal stenosis and impingement right T1 nerve. Correlate with radiculopathy. This has progressed since the prior study, which may be due to occult disc protrusion. Electronically signed by: Santi Vazquez MD 10/04/2019 4:32 PM CDT
== END ==
LOC: MRI 11:00
PROVIDERS: ATTEND Neurological Surgery
DX: M47.12 Other spondylosis with myelopathy, cervical region (principal); M50.30 Other cervical disc degeneration, unspecified cervical region; M46.92 Unspecified inflammatory spondylopathy, cervical region; M48.02 Spinal stenosis, cervical region; M47.814 Spondylosis without myelopathy or radiculopathy, thoracic region; M48.04 Spinal stenosis, thoracic region; M47.816 Spondylosis without myelopathy or radiculopathy, lumbar region; M96.1 Postlaminectomy syndrome, not elsewhere classified; M24.28 Disorder of ligament, vertebrae

== ENCOUNTER → 2019-11-03 | Outpatient (CLI) | payer MEDICARE, OTHER ==
--- NOTE | 2019-11-06 11:59 | CT ---
EXAM DESCRIPTION: Chest w/o Contrast . CLINICAL HISTORY: 74 years Male NICOTINE DEPENDENCE WITH OTHER DISORDERS. RIGHT LUNG MASS. FOLLOW-UP. COMPARISON: CT scan the chest without IV contrast February 2019. TECHNIQUE: Spiral-axial scans at 5 x 5 mm intervals through the lungs and thorax without IV contrast. 2.5 x 2.5 mm lung algorithm axial reconstructions. Coronal and sagittal 2.0 Mm reconstructions. No adverse reactions. Total Exam DLP: 832 mGy-cm. This exam was performed according to our departmental dose-optimization program which includes automated exposure control, adjustment of the mA and/or kV according to patient size and/or use of iterative reconstruction technique; to reduce radiation dose to as low as reasonably achievable (ALARA). Nodule measurements under 10 mm are given as mean value of 3 axes diameters. FINDINGS: Lungs and large airways: Partially calcified, circumscribed mass abutting the superior right hilum, mediastinum, and the right major fissure in the medial base of the right upper lobe again noted. Dimensions are 3.3 x 3.2 cm. 3.7 cm in the coronal plane with superior extension on the lateral aspect. Stable since the prior study. Bilateral variable sizes of blebs in the parenchyma in a centrilobular distribution. Minimal perihilar peribronchial wall cuffing. Also subpleural blebs and scattered bulla mostly in the upper lobes. Bilateral peripheral groundglass densities. These findings are stable. No new masses or abnormal nodules. No acute infiltrates. Pleural spaces: Bilateral thickening with no effusion or pneumothorax. Mediastinum and [place]: Evaluation limited due to lack of IV contrast scattered small lymph nodes appearing nonreactive and stable. Great vessels and Heart: Evaluation limited due to lack of IV contrast. Atherosclerotic calcifications of several brachiocephalic vessels, aortic arch and descending thoracic aorta, and coronary vessels. Soft tissues of neck base, axillae, and chest wall: Evaluation limited due to lack of IV contrast. Stable hypodense nodule in the mid left thyroid lobe measuring 1.8 x 1.7 cm. Bilateral nonreactive axillary nodes. Enlarging, circumscribed subcutaneous nodule upper right back measuring 2.2 x 1.4 cm. Upper abdomen: 2 cm gallstone in the gallbladder. Adrenal glands normal size and density. Spleen negative. No free air or free fluid. Stable low-density region lateral aspect of the superior right hepatic lobe. Osseous structures: Multiple levels of disc space narrowing and endplate ridging. Schmorl's nodes and spondylosis more prominent in the inferior segments. Sternoclavicular and glenohumeral arthrosis. IMPRESSION: 1. Partially calcified circumscribed mass stable in the superior right hilum at the medial base of the right upper lobe abutting the mediastinum. 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 Consider 12-18 month follow-up. Stable emphysematous changes upper lung jaimes. No new nodules or masses. No new infiltrates. 2. Low-density lesion superior aspect lateral right hepatic lobe also stable, possible meningioma. Consider evaluation with ultrasound. 3. 2 cm gallstone in the lower gallbladder, which was not included on the prior study. Consider evaluation with ultrasound. 4. Stable hypodense nodule in the mid left thyroid lobe 1.8 cm maximum dimension. [facility] Best Practice guidelines: Recommend follow-up thyroid ultrasound. Electronically signed by: Santi Vazquez MD 11/06/2019 11:58 AM CDT
== END ==
LOC: CT 10:47
PROVIDERS: ATTEND Internal Medicine Critical Care Medicine
DX: R91.8 Other nonspecific abnormal finding of lung field (principal); J43.9 Emphysema, unspecified; F17.218 Nicotine dependence, cigarettes, with other nicotine-induced disorders; K76.9 Liver disease, unspecified; K80.20 Calculus of gallbladder without cholecystitis without obstruction; E04.1 Nontoxic single thyroid nodule

== ENCOUNTER → 2019-11-10 | Outpatient (CLI) | payer MEDICARE, OTHER ==
--- NOTE | 2019-11-10 13:41 | CT ---
EXAM DESCRIPTION: Abdomen w/wo Contrast CLINICAL HISTORY: 74 years Male, NICOTINE DEPENDENCE WITH OTHER DISORDERS COMPARISON: None. TECHNIQUE: CT of the abdomen was performed before and after intravenous contrast demonstration. Sagittal and coronal reconstructions were reviewed. This exam was performed according to our departmental dose-optimization program, which includes automated exposure control, adjustment of the mA and/or kV according to patient size and/or use of iterative reconstruction technique. FINDINGS: Visualized lower thorax appears normal. Ill-defined 2.3 cm low-density lesion is identified in hepatic segment 8. Multiple gallstones are visualized. The pancreas, spleen, bilateral adrenal glands and kidneys appear grossly unremarkable. Mild reflux esophagitis. The stomach is nondistended well-distended limiting detailed evaluation. The small bowel loops appear normal. Numerous diverticuli are noted throughout the visualized descending colon, with no acute inflammation. The appendix appears normal. Moderate to severe atherosclerotic disease of the visualized aorta. Inferior vena cava is normal in size and caliber. No abnormally enlarged lymph nodes are noted. Moderate to severe degenerative changes are identified throughout the visualized spine. IMPRESSION: 1. Ill-defined 2.3 cm low-density lesion is identified in hepatic segment 8. MRI of the abdomen with and without contrast can be performed for further evaluation. 2. Cholelithiasis. 3. Mild reflux esophagitis. 4. Significant colonic diverticulosis. Electronically signed by: Nakita Jeter MD 11/10/2019 1:39 PM CDT
== END ==
LOC: CT 10:46
PROVIDERS: ATTEND Internal Medicine Critical Care Medicine
DX: K76.9 Liver disease, unspecified (principal); K80.20 Calculus of gallbladder without cholecystitis without obstruction; K57.30 Diverticulosis of large intestine without perforation or abscess without bleeding; K20.9 Esophagitis, unspecified; F17.218 Nicotine dependence, cigarettes, with other nicotine-induced disorders

== ENCOUNTER → 2019-12-11 | Outpatient (CLI) | payer MEDICARE, OTHER ==
--- NOTE | 2019-12-11 16:15 | MRI ---
CLINICAL HISTORY PROVIDED: liver disorders TECHNIQUE: Multiplanar, multisequence MR images of the abdomen. Images were obtained before and after the use of IV contrast. COMPARISON: 11/10/2019 FINDINGS: Hepatic segment VIII lesion measuring 1.9 x 2.2 cm. This lesion is T2 hyperintense, T1 hypointense and incompletely evaluated given the lack of intravenous contrast. No other hepatic lesion identified. Mild hepatic steatosis. Cholelithiasis. Normal caliber portal vein. The spleen, pancreas and adrenal glands are unremarkable. Normal renal contours. No hydronephrosis. The visualized bowel is normal in caliber without evidence of obstruction or focal inflammatory change. No adenopathy. No focal fluid collection. Normal caliber abdominal aorta. No focal marrow signal abnormality. IMPRESSION: Incompletely characterized hepatic segment VIII lesion measuring 2.2 cm. Recommend postcontrast imaging for complete evaluation. Electronically signed by: Steven Brizuela MD 12/11/2019 4:14 PM CDT
== END ==
LOC: MRI 11:00
PROVIDERS: ATTEND Family Medicine
DX: K76.9 Liver disease, unspecified (principal); K77 Liver disorders in diseases classified elsewhere

== ENCOUNTER → 2020-02-01 | Outpatient (CLI) | payer MEDICARE, OTHER | LOC: GMAM 16:57 | PROVIDERS: ATTEND Family Medicine | DX: M25.50 Pain in unspecified joint (principal); I10 Essential (primary) hypertension; E11.9 Type 2 diabetes mellitus without complications ==

== ENCOUNTER → 2020-05-07 | Outpatient (CLI) | payer MEDICARE, OTHER ==
--- NOTE | 2020-05-08 08:17 | MRI ---
Study: MRI of the Right Knee. Indication: osteroarthritis of knee Technique: Multiplanar, multi sequence MRI of the right knee was obtained without intravenous contrast. Comparison: None Findings: ACL and PCL intact. Thickening proximal MCL and FCL indicating remote sprains. No acute rupture of the lateral structures. Oblique undersurface and free edge tearing posterior horn/root medial meniscus with extension into the body as well. Body extruded by 3 mm. Patchy grade 3-4 chondrosis throughout the medial femoral condyle with mild cortical remodeling. Degenerative signal and expansion anterior horn and body lateral meniscus with subtle horizontal cleavage tearing and slight extrusion. Grade 3 and mild grade 4 chondrosis of the central to medial margins of the lateral compartment. Patellofemoral extensor mechanism intact. Patella located. Extensive grade 4 chondrosis and cortical remodeling medial patellar facet and apex. Mild grade 3/4 chondrosis medial femoral trochlea. Moderate size knee effusion. No acute fracture. Impression: Extensive medial and lateral meniscal tearing as above. Prior MCL and FCL sprains. Extensive tricompartmental areas of grade 3 and 4 chondral loss above. Moderate size knee effusion. Electronically signed by: Wilson Krueger MD 05/08/2020 8:15 AM [facility] [[email or web address]]
== END ==
LOC: MRI 10:44
PROVIDERS: ATTEND Family Medicine
DX: M17.9 Osteoarthritis of knee, unspecified (principal); S83.411A Sprain of medial collateral ligament of right knee, initial encounter; S83.421A Sprain of lateral collateral ligament of right knee, initial encounter; M25.461 Effusion, right knee